=== PATIENT | male | born 1970 | race Hispanic/Latino ===

== ENCOUNTER 2017-10-11 12:20 | Outpatient (CLI) | payer OTHER ==
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
== END 2017-10-11 12:21 | disposition home or self-care (01) ==
LOC: CT 12:20
PROVIDERS: ATTEND Orthopaedic Surgery
DX: S72.322D Displaced transverse fracture of shaft of left femur, subsequent encounter for closed fracture with routine healing (principal); S72.322K Displaced transverse fracture of shaft of left femur, subsequent encounter for closed fracture with nonunion; Z98.890 Other specified postprocedural states